=== PATIENT | female | born 1960 | race Caucasian/White ===

== ENCOUNTER 2016-11-29 10:08 | Inpatient (IN) | payer OTHER ==
[~2016-11-29] VITALS: Ht 152.4 cm; Wt 47.6 kg
[~2016-11-29 10:08] MED LIST: ATROVENT HFA 121 PUF INH; BACTRIM DS TAB1 EACH PO; INDOCIN25 MG PO; KEFLEX500 M1 PO; LYRICA150 M1 PO; LYRICA25 MG PO; MEDROL DOSEPAK1 PAC PO; NEURONTIN300 MG PO; PROAIR HFA8.5 GM INH; SUBOXONE 8 MG-21 FIL SL; TRAZODONE HCL50 M1 PO; VITAB121000 PO
[2016-11-29] MEDS ORDERED: ESCITALOPRAM OX10 MG PO (10:47)
--- NOTE | 2016-11-29 10:51 | ED HAND/WRIST INJURY COMPLAINT ---
See Addendum History of Present Illness General Chief Complaint: Hand or Wrist Injury Stated Complaint: "MY PINKY IS TURNING BLACK" LEFT Source: patient, old records Exam Limitations: no limitations Allergies Coded Allergies: Penicillins (RASH 11/29/16) Reconcile Medications Albuterol Sulfate (Proair Hfa) 90 MCG HFA.AER.AD 2 PUF INH Q4-6 PRN PRN SHORTNESS OF BREATH (Reported) Escitalopram Oxalate 10 MG TABLET 1 TAB PO DAILY DEPRESSION (Reported) Pregabalin (Lyrica) 150 MG CAPSULE 1 CAP PO BID PAIN (Reported) Trazodone HCl 50 MG TABLET 1 TAB PO QPM SLEEP (Reported) Triage Note: PT TO ED S/P FALL ON WEDNESDAY AND FELL LAST NIGHT ON ICE, C/O OF PAIN/SWELLING BRUISING TO RIGHT RIGHT PINKY. Triage Nurses Notes Reviewed? yes Occurred: last week Duration: day(s): (3), constant, getting worse Timing: recent history Injury Environment: home Severity: moderate, severe Severity Numbers: 10 Pain/Injury Location: Right: 5th finger. Context: fall Method of Injury: fall Modifying Factors: Improves With: rest. Worsens With: movement. Associated Symptoms: swelling, redness HPI: 56 year old female with history of bipolar presents emergency room for evaluation complaining of bruising and pain to her right fifth finger status post fall 3 days ago and then again last night. The patient states that she fell on her elbow and did not injure her pinky hours since then she's had progressively worsening pain and swelling to her right fifth finger. The pain is worse with range of motion. She is not taken anything for her symptoms there is no other injury from the fall no head strike no LOC no neck or back pain chest pain shortness of breath fevers or chills. Patient states that today she began to notice redness streaking up her arm. She denies any known other injury or trauma, however states that she fell asleep during the day for approximately 2 hours in her car. (MARTY GOODMAN) Vital Signs & Intake/Output Vital Signs & Intake/Output Vital Signs Date Time Temp Pulse Resp B/P Pulse O2 O2 Flow FiO2 Ox Delivery Rate 11/29 1429 98.0 90 18 102/66 94 Room Air 11/29 1244 99.2 80 20 118/60 98 Room Air 11/29 1144 99.0 84 108/74 11/29 1013 97.0 92 20 123/82 98 Room Air Room Air Past History Travel History Traveled to [place] past 21 day No Medical History Any Pertinent Medical History? none Neurological: NONE EENT: NONE Cardiovascular: NONE Respiratory: NONE Gastrointestinal: NONE Hepatic: NONE Renal: NONE Musculoskeletal: gout Psychiatric: bipolar disease Endocrine: NONE Blood Disorders: NONE Cancer(s): NONE POT PUSHER/Reproductive: NONE Tetanus Vaccine: 04/13/16 Surgical History Surgical History: non-contributory Psychosocial History What is your primary language Kyrgyz Tobacco Use: Current Daily Use Daily Tobacco Use Amount/Type: => 5 Cigarettes daily ETOH Use: denies use, SOBER X 3 YEARS Illicit Drug Use: denies illicit drug use Family History Hx Contributory? No (MARTY GOODMAN) Review of Systems Review of Systems Constitutional: Reports: see HPI. All Other Systems: Reviewed and Negative Comments Review of systems: See HPI, All other systems negative. Constitutional, no chills no fever, no malaise HEENT: No visual changes no sore throat no congestion, Cardiovascular: No chest pain , no palpitation Skin,no rashes, no change in skin Respiratory: No dyspnea no cough no sputum GI: No nausea no vomiting, no diarrhea : No dysuria No hematuria, Muscle skeletal: joint pain, no joint swelling, Neurologic: No numbness, no headache Psych: No stress Heme/endocrine: No bruising no bleeding Immunology: No lymphadenopathy (MARTY GOODMAN) Physical Exam Physical Exam General Appearance: well developed/nourished, alert, awake Hand Left: normal inspection, normal range of motion Hand Right: normal inspection, normal range of motion Comments: Well-developed well-nourished patient in no apparent distress. HEENT: Atraumatic, extraocular motion intact Neck: Supple, FROM, Back: FROM, Cardiovascular: Regular rate and rhythms no murmurs rubs or gallops, Respiratory:No respiratory distress. Patient speaking in full complete sentences. Breath sounds clear to auscultation bilaterally: NO W/R/R Shoulder: Atraumatic/Stable. FROM . Elbow: Atraumatic/stable. FROM. No laxity Upper arm/Forearm: Atraumatic. Nontender. No edema, 5 out of 5 hospital mortician strength noted to bilateral upper extremities Hand/Wrist: large hemorrhage bullae noted to the dorsal mid R 5th phalanx, the distal aspect of the finger and nail are unremarkable, and the bullae is not circumfriential. there is streaking erythema up the the volar and dosral aspect of the R arm, lrom of the r 5th finger secondray to pain, ttp over the bullae, Skin intact. FROM Pulses: Normal/equal radial pulses bilaterally. Brisk cap refill lower Extremities: full range of motion Neuro: Alert and oriented x3 Skin: Warm & dry;No appreciable rash on exposed skin Psych: Mood affect normal, normal memory normal judgment. (MARTY GOODMAN) Progress Differential Diagnosis: abscess, contusion, compartment syndrome, dislocation, felon, fracture, sprain Diagnostic Imaging: Viewed by Me: Radiology Read. Discussed w/RAD: Radiology Read. Radiology Impression: PATIENT: CASI DAMON PRESENT AGE: 56 PATIENT ACCOUNT NO: [id number] : 61 LOCATION: [facility] ORDERING PHYSICIAN: MARTY LEAVITT SERVICE DATE: 11/29/16 EXAM TYPE: RAD - XRY- FINGERS, RIGHT EXAMINATION: XR FINGER, RIGHT CLINICAL INFORMATION: Fall, trauma, pain COMPARISON: Right hand 04/13/2016. TECHNIQUE: Oblique and lateral views right fifth finger and AP view right hand are obtained for 3 views. FINDINGS: There is diffuse soft tissue swelling right fifth finger with more focal prominent soft tissue swelling dorsal aspect mid finger to the nail bed. There is no gas tracking in the soft tissues. No visible radiopaque soft tissue foreign body. The underlying bone appears intact. There is no visible fracture or dislocation. There is no joint narrowing or erosive changes or periostitis. Remainder of the bony structures are unremarkable. IMPRESSION: 1. Prominent soft tissue swelling right fifth finger, greatest dorsal aspect mid finger to the nail bed. 2. No fracture or dislocation or destructive process. 3. No gas tracking in soft tissues. No radiopaque soft tissue foreign body. DICTATED BY: SELAM MACK MD DATE/TIME DICTATED:11/29/161041 APPLE PICKER:RELL DATE/TIME TRANSCRIBED:11/29/161041 CONFIDENTIAL, DO NOT COPY WITHOUT APPROPRIATE AUTHORIZATION. <Electronically signed in Other Vendor System> SIGNED BY: SELAM MACK MD 11/29/16 1050 (MARTY GOODMAN) Plan of Care: Orders Procedure Date/time Status CBC WITHOUT DIFFERENTIAL 11/30 0600 Active BASIC ELECTROLYTES PLUS BUN&CR 11/30 0600 Active Regular Diet 11/29 D Active Admit to inpatient 11/29 1405 Active Pathway - chart 11/29 1403 Active House Staff 11/29 1403 Active Patient Data 11/29 1403 Active CULTURE,URINE 11/29 1403 Active Code Status 11/29 1403 Active Patient Data 11/29 1340 Active URINE DRUG SCREEN FOR ER ONLY 11/29 1159 Complete Saline Lock 11/29 1102 Active BLOOD CULTURE 11/29 1102 Active ETHANOL 11/29 1102 Complete COMPREHENSIVE METABOLIC PANEL 11/29 1102 Complete CREATINE PHOSPHOKINASE 11/29 1102 Complete CBC WITHOUT DIFFERENTIAL 11/29 1102 Complete Intake & Output 11/29 1047 Active VTE Mechanical Prophylaxis 11/29 UNK Active Current Medications Sig/Amandeep Start time Last Medication Dose Stop Time Status Admin Enoxaparin Sodium 40 MG DAILY 11/30 1000 AC (Lovenox) Acetaminophen 650 MG Q6 PRN 11/29 1415 AC (Tylenol) Ibuprofen 600 MG Q6 PRN 11/29 1415 AC (Motrin) Ketorolac 15 MG Q6P PRN 11/29 1415 AC Tromethamine (Toradol) Laboratory Tests 11/29/16 1228: Urine Opiates Screen < 100.00, Methadone Screen 43, Barbiturate Screen 63, Ur Phencyclidine Scrn < 6.00, Amphetamines Screen < 100, U Benzodiazepines Scrn < 85, Urine Cocaine Screen > 1000 H, Urine Cannabis Screen < 5.00 11/29/16 1110: Anion Gap 10, Estimated GFR > 60, BUN/Creatinine Ratio 18.3, Glucose 113 H, Calcium 9.6, Total Bilirubin 0.6, AST 22, ALT 28, Alkaline Phosphatase 107, Creatine Kinase 142 H, Total Protein 7.7, Albumin 4.6, Globulin 3.1, Albumin/ Globulin Ratio 1.5, CBC w Diff NO MAN DIFF REQ, RBC 4.63, MCV 92.8, MCH 30.8, RDW 13.9, MPV 9.2, Gran % 79.4 H, Lymphocytes % 11.1 L, Monocytes % 7.4, Eosinophils % 1.1, Basophils % 1.0, Absolute Granulocytes 10.0 H, Absolute Lymphocytes 1.4, Absolute Monocytes 0.9 H, Absolute Eosinophils 0.1, Absolute Basophils 0.1, PUBS MCHC 33.2, Serum Alcohol < 10.0 Microbiology 11/29 1403 URINE ROUT: Urine Culture - ORD 11/29 111 BLOOD: Blood Culture - RECD 11/29 111 BLOOD: Blood Culture - RECD Labs ordered old records reviewed x-ray was reviewed and discussed with patient her results, Unasyn 1.5 mg IV ordered d/w the pt and her mother all of her results and xray findings- need for admission and plastics consult which they are in agreement with Case discussed with dr donaldson will admit, advised to given doxy 100mg iv, tetantus, (MARTY GOODMAN) Departure Departure Time of Disposition: 1334 Disposition: STILL A PATIENT Condition: Stable Clinical Impression Primary Impression: Cellulitis Secondary Impressions: Lymphangitis, Traumatic bulla Referrals: MATTHEW ARCINIEGA MD (PCP/Family) Departure Forms: Customer Survey General Discharge Information Admission Note Spoke With: ISABELA DONALDSON MD Documentation of Exam: Documentation of any treatments & extenuating circumstances including Concerns Regarding Discharge (functional status, medication knowledge or non-compliance, living conditions, etc.) that warrant an admission rather than observation: IV antibiotics, plastics consult premature discharge would BE medically harmful trend labs (MARTY GOODMAN) PA/HOUSEHOLD REFRIGERATION MECHANIC Co-Sign Statement Statement: ED Attending supervision documentation- [x] I saw and evaluated the patient. I have also reviewed all the pertinent lab results and diagnostic results. I agree with the findings and the plan of care as documented in the PA's/HOUSEHOLD REFRIGERATION MECHANIC's documentation. [] I have reviewed the ED Record and agree with the PA's/HOUSEHOLD REFRIGERATION MECHANIC's documentation. [] Additions or exceptions (if any) to the PAs/HOUSEHOLD REFRIGERATION MECHANIC's note and plan are summarized below: [] (MELONIE DUBOSE,JULIET Martin)
[2016-11-29 11:35] LABS: ABSOLUTE BASOPHIL COUNT 0.1 /CUMM (0.0-0.2); ABSOLUTE EOSINOPHIL COUNT 0.1 /CUMM (0.0-0.7); ABSOLUTE LYMPH COUNT 1.4 /CUMM (1.2-3.4); ABSOLUTE MONOCYTE COUNT 0.9 /CUMM (0.10-0.60); EOSINOPHIL % 1.1 % (0-5); GRANULOCYTE % 79.4 % (42.2-75.2); MEAN CORPUSCULAR HGB 30.8 PG (27.0-31.0); MEAN CORPUSCULAR HGB CONC 33.2 G/DL (33.0-37.0); MEAN CORPUSCULAR VOLUME 92.8 FL (81.0-99.0); MEAN PLATELET VOLUME 9.2 FL (7.4-10.4); PLATELET COUNT 241 /CUMM (130-400); RBC DISTRIBUTION WIDTH 13.9 % (11.5-14.5); RED BLOOD CELL CT 4.63 /CUMM (4.20-5.40); WHITE BLOOD CELL COUNT 12.6 /CUMM (4.8-10.8)
--- NOTE | 2016-11-29 15:06 | History & Physical ---
SHI DUBOSE,[facility] 11/29/16 1505: General Information and HPI MD Statement: I have seen and personally examined CASI DAMON and documented this H&P. The patient is a 56 year old F who presented with a patient stated chief complaint of swollen finger. Source of Information: patient, family Exam Limitations: poor historian, intoxication History of Present Illness: This is a 56-year-old with a past medical history of bipolar disease, polysubstance abuse, and no other known medical history presents to [place] ED with a chief complaint of a swollen fifth finger of her right jarvis. Patient was significantly drowsy and was a very poor historian and struggle to maintain a conversation. We attempted to contact, for more information without any success. Patient reports that in the past few days she has noticed that her finger was swollen and now has progressively worsened with pain and discoloration. Patient friend who was presented later notes that the patient had 2 episodes of mechanical fall on ice without hitting her head. Patient claims that her fifth digitt of her right wrist is swollen because of frostbite. She does deny any trauma or insect bite. She denies any fevers, chills, nausea, vomiting, chest pain, palpitation, shortness of breath, abdominal pain or dysuria. Patient reports that she lives at home with her mother. Allergies/Medications Allergies: Coded Allergies: Penicillins (RASH 11/29/16) Home Med list Albuterol Sulfate (Proair Hfa) 90 MCG HFA.AER.AD 2 PUF INH Q4-6 PRN PRN SHORTNESS OF BREATH (Reported) Escitalopram Oxalate 10 MG TABLET 1 TAB PO DAILY DEPRESSION (Reported) Pregabalin (Lyrica) 150 MG CAPSULE 1 CAP PO BID PAIN (Reported) Trazodone HCl 50 MG TABLET 1 TAB PO QPM SLEEP (Reported) Past History Travel History Traveled to [place] past 21 day No Medical History Neurological: NONE EENT: NONE Cardiovascular: NONE Respiratory: NONE Gastrointestinal: NONE Hepatic: NONE Renal: NONE Musculoskeletal: gout Psychiatric: bipolar disease Endocrine: NONE Blood Disorders: NONE Cancer(s): NONE AVIONICS TEST TECHNICIAN/Reproductive: NONE Tetanus Vaccine: 11/29/16 Surgical History Surgical History: non-contributory Past Family/Social History Psychosocial History ETOH Use: denies use, SOBER X 3 YEARS Illicit Drug Use: denies illicit drug use Review of Systems Review of Systems Constitutional: Denies: see HPI (most of the review of systems ). All Other Systems: Reviewed and Negative Exam & Diagnostic Data Physical Exam General Appearance Alert, oriented to place and person, appears moderately sedated Skin significant discoloration of the fifth digit of right hand with purple hue and some mild necrotic areas, streaking erythema up to the volar and dorsal Mary HEENT Atraumatic, PERRLA, EOMI, Mucous Membr. moist/pink Neck Supple, No JVD, No thryomegaly Lymphatic Cervical nl Cardiovascular Regular Rate, Normal S1, Normal S2 Lungs Clear to Auscultation, Normal Air Movement Abdomen Normal Bowel Sounds, Soft, No Tenderness Neurological Normal Speech, not able to conduct a full neurological exam due to moderate sedation of patient Extremities No Clubbing, No Cyanosis, No Edema, Normal Pulses, brisk capillary refill Vascular Normal Pulses, Pulses Symmetrical Assessment/Plan Assessment: This is a 56-year-old lady with a past medical history of bipolar disease and probable polysubstance abuse presents to [place] ED for evaluation of a swollen discolored fifth digit finger of her right hand. She is also noted to have mild leukocytosis. At the ED and incision and debridement was done of the right finger which produced hemorrhagic drainage and some mild necrotic tissue. Patient was also noted to have a positive urine tox for cocaine. Patient was admitted to general medicine floor for evaluation and treatment of her infected finger. Assessment and plan #Swollen fifth digit of the right hand Affected fifth digit had a hemorrhagic blister appearance, discoloration, and was suggestion of necrosis. Considering that the patient is sedated and sleepy with a positive urine tox it is most likely that her swollen finger was caused by trauma secondary to laying on hand while asleep. During debridement, there were some necrotic appearing tissue, this could suggest that patient finger was infected after the trauma. Plan Will start patient on prophylaxis treatment of clindamycin 600 mg IV q8h NSAIDs for symptomatic relief Resting splint and elevation for the affected digit Will continue with dressing recommendation of a sulfadiazine and Xeroform to be done twice daily #Cocaine abuse Patient urine tox is remarkable for cocaine. Plan We'll monitor for withdrawal Will consider social/psychosocial consult. #Psychiatric history Will continue escitalopram, but hold the trazodone and Lyrica in the setting of moderate sedation. Will need to obtain patient's detailed past medical history from his primary care As Ranked By This Provider Problem List: 1. Traumatic bulla Core Measures/Miscellaneous Acute Coronary Syndrome ACS Diagnosis: No Cerebrovascular Accident CVA/TIA Diagnosis: No Congestive Heart Failure CHF Diagnosis: No Venous Thromboembolism VTE Risk Factors: Acute medical illness, Age > 40 VTE Prophylaxis Ordered Inpt: Pharm- Lovenox No Mech VTE prophylaxis d/t: No contraindications No VTE Pharm Prophylaxis d/t: No contraindications VTE Diagnosis: No VTE Type: NONE VTE Confirmed by (Test): NONE Severe Sepsis Severe Sepsis Present: No Septic Shock Septic Shock Present: No Miscellaneous Documentation Attending Case Discussed With: MENDOZA DUBOSE,ISABELA Primary Care Physician: MATTHEW ARCINIEGA MD Patient sees these Specialists none Level of Patient Care: General Medicine JAZMIN FORTUNE 11/29/16 1624: Exam & Diagnostic Data Last 24 Hrs of Vital Signs/I&O Vital Signs Date Time Temp Pulse Resp B/P Pulse O2 O2 Flow FiO2 Ox Delivery Rate 11/30 0856 98.6 70 20 110/60 94 Nasal 2.0L Cannula 11/30 0141 72 110/70 11/30 0027 98.4 69 20 102/54 95 11/30 0000 Nasal 2.0L Cannula 11/29 2009 94 Nasal 2.0L Cannula 11/29 1940 98.1 79 18 80/40 98 Nasal 2.0L Cannula 11/29 1845 98.9 83 17 90/30 97 Nasal 2.0L Cannula 11/29 1815 98.6 90 18 87/48 94 Nasal 2.0L Cannula 11/29 1704 101.0 102 20 132/78 96 Room Air 11/29 1702 99.9 11/29 1628 101.8 11/29 1615 101.8 100 20 127/75 100 Room Air 11/29 1429 90 18 102/66 94 Room Air 11/29 1244 99.2 98 20 118/60 98 Room Air 11/29 1144 99.0 84 108/74 11/29 1013 97.0 92 20 123/82 98 Room Air Room Air Intake & Output 11/30 1600 11/30 0800 11/30 0000 Intake Total 970 1000 Output Total 800 Balance 170 1000 Intake, IV 850 1000 Intake, Oral 120 Output, Urine 800 Patient 105 lb Weight Resident Review Statement Resident Statement: examined this patient, discussed with sports internship, agreed with sports internship Other Findings: Patient is a 56-year-old woman with a past medical history significant for bipolar disease presented to the ED with a chief complaint of swelling of the right fifth finger status post fall . Patient was very drowsy and lethargic at the time of examination so most of the history was obtained from the ED physician . As per ED physician patient fell on ice on Wednesday and then again last night, she could not recall whether she injured her right fifth finger. Patient denied any trauma to hand/bug bite. She did mention that she was in the car without any heat for almost 2 hours during the day. Patient reported that the swelling gotten worsein the last 24 hours with progressive discoloration. Reported pain on passive finger movements. Denied any fever or chills. Vitals on admission: Temperature: 97.0, pulse 90, respiratory rate 20, blood pressure 123/82 on room air General Appearance: Appeared drowsy but oriented in time place and person Skin: Grossly normal HEENT: PEERLA Neck: Supple, No JVD Cardiovascular: Regular Rate, Normal S1, Normal S2, No Murmurs Lungs: Decreased respirations with wheeze on exam Abdomen: Normal Bowel Sounds, Soft, No Tenderness Neurological: Normal Speech, Strength at 5/5 X4 Ext, Cranial Nerves 3-12 NL, Reflexes 2+ Extremities: large hemorrhage bullae noted to the dorsal mid R 5th phalanx, the distal aspect of the finger and nail are unremarkable, and the bullae is not circumfriential. there is streaking erythema up the the volar and dosral aspect of the R arm, lrom of the r 5th finger secondray to pain, ttp over the bullae, Skin intact. Vascular: Normal Pulses Pertinent labs on admission: Leukocytosis 12.6 without any bandemia, normal BEP Urine tox was positive for cocaine X-ray of the right fifth finger showed: Prominent soft tissue swelling right fifth finger, greatest dorsal aspect mid finger to the nail bed. No fracture or dislocation or destructive process. No evidence of gas in the soft tissues. Assessment and plan: 1. Worsening right fifth finger swelling with discoloration(possible underlying Pressure induced injury leading to skin necrosis and cellulitis/lymphangitis : * Plastic surgery consult has been obtained for possible debridement of the wound, we will reevaluate the patient and send the samples from the wound for culture. * Empirically treat the patient with IV clindamycin for now for possible underlying infection. * Moderate to severe pain control with ibuprofen and Toradol. * Mild pain controlled with warm/cold therapy * Continue with hand elevation. * Post debridement continuw with xeroform dressing and Silvedene. * [facility] 2. History of bipolar disease and anxiety and depression * Continue home medications ,hold for worsening drowsiness/lethargy. 3. Positive drug screening(urine tox positive for cocaine): * Continue to monitor. * Consider social consult in the morning. 4. DVT prophylaxis with Lovenox(start tomorrow)-anticipated debridement of the wound today. 5. Pain control with IV Toradol and ibuprofen 6. Patient is full code ISABELA DONALDSON MD 11/29/16 1749: Attending MD Review Statement Attending Statement Attending MD Statement: examined this patient, discuss w/resident/PA/VAMP MARKER, agreed w/resident/PA/VAMP MARKER, reviewed EMR data (avail) Attending Assessment/Plan: 56F PMH bipolar disorder, polysubstance abuse admitted with right 5th finger hemorrhagic bullous with significant pain and surrounding erythema. Had 2 falls over the past few days without head injury, slept in her car overnight, denies getting bit by anything or anyone, cannot recall any trauma to the finger. Afebrile, stable vitals, labs reviewed. Over the course of a few hours, lesion began darker and started to spread proximally. Plan - Admit to general medicine - Start Clindamycin (penicillin allergic, though receied Unasyn in ED without issues) - Blood cultures - Plastic surgery consult - Xeroform and Silvedene, keep elevated, OT consult - Monitor post-debridement - DVT PPx
--- NOTE | 2016-11-29 17:32 | Cons- Plastic Surgery ---
General Information and HPI Consulting Request Date of Consult: 11/29/16 Requested By: ISABELA DONALDSON MD Reason for Consult: right small finger injury History of Present Illness: 56-year-old right-handed female, smoker nondiabetic unemployed bipolar poor historian accompanied by mother and friend with cocaine in system per report, with swelling of right small finger since , progressively worsening with dark blister and pain so came to ER today. Fell asleep in car. Unclear details. Friend thought it was marshall bite but no ther fingers involved. Note to have streaking up arm. Xray negative for fx per ER staff. WBC elevated Allergies/Medications Allergies: Coded Allergies: Penicillins (RASH 11/29/16) Home Med List: Albuterol Sulfate (Proair Hfa) 90 MCG HFA.AER.AD 2 PUF INH Q4-6 PRN PRN SHORTNESS OF BREATH (Reported) Escitalopram Oxalate 10 MG TABLET 1 TAB PO DAILY DEPRESSION (Reported) Pregabalin (Lyrica) 150 MG CAPSULE 1 CAP PO BID PAIN (Reported) Trazodone HCl 50 MG TABLET 1 TAB PO QPM SLEEP (Reported) Current Medications: Current Medications Sig/Amandeep Start time Last Medication Dose Route Stop Time Status Admin Acetaminophen 650 MG ONCE ONE 11/29 1630 DC 11/29 PO 11/29 1631 1628 Acetaminophen 0 .STK-MED ONE 11/29 1621 DC PO Acetaminophen 650 MG Q6 PRN 11/29 1415 AC PO Ampicillin Sodium/ 0 .STK-MED ONE 11/29 1126 DC Sulbactam Sodium .ROUTE Ampicillin Sodium/ 1,500 MG ONCE ONE 11/29 1115 DC 11/29 Sulbactam Sodium IV 11/29 1144 1129 Sodium Chloride 100 ML Clindamycin 600 MG IQ8 11/29 1600 AC 11/29 Dextrose/Water 50 ML IV 1700 Doxycycline Hyclate 100 MG ONCE ONE 11/29 1330 DC 11/29 Sodium Chloride 100 ML IV 11/29 1435 1348 Enoxaparin Sodium 40 MG DAILY 11/30 1000 CAN SC Enoxaparin Sodium 40 MG DAILY 11/30 1000 AC SC Escitalopram Oxalate 10 MG DAILY 11/30 1000 CAN PO Ibuprofen 600 MG Q6 PRN 11/29 1415 AC PO Ketorolac 15 MG Q6P PRN 11/29 1415 AC Tromethamine IV Ketorolac 30 MG ONCE ONE 11/29 1130 DC 11/29 Tromethamine IV 11/29 1131 1129 Ketorolac 0 .STK-MED ONE 11/29 1126 DC Tromethamine .ROUTE Lidocaine 0 .STK-MED ONE 11/29 1616 DC .ROUTE Morphine Sulfate 0 .STK-MED ONE 11/29 1620 DC .ROUTE Morphine Sulfate 4 MG ONCE ONE 11/29 1615 DC 11/29 IV 11/29 1616 1628 Silver Sulfadiazine 1 CHRISTIAN ONCE ONE 11/29 1615 DC 11/29 TOP 11/29 1616 1654 Tetanus/Diphtheria 0 .STK-MED ONE 11/29 1339 DC Toxoids Adsorbed IM Tetanus/Diphtheria 0.5 ML ONCE ONE 11/29 1330 DC 11/29 Toxoids Adsorbed IM 11/29 1331 1340 Trazodone HCl 50 MG QPM 11/29 2200 CAN PO Past History Medical History Neurological: NONE EENT: NONE Cardiovascular: NONE Respiratory: NONE Gastrointestinal: NONE Hepatic: NONE Renal: NONE Musculoskeletal: gout Psychiatric: bipolar disease Endocrine: NONE Blood Disorders: NONE Cancer(s): NONE BUYER/Reproductive: NONE Surgical History Pertinent Surgical History: non-contributory Psychosocial History Smoking Status: Heavy Tobacco Smoker ETOH Use: denies use, SOBER X 3 YEARS Illicit Drug Use: denies illicit drug use (? report cocaine) Exam & Diagnostic Data Vital Signs and I&O Vital Signs Date Time Temp Pulse Resp B/P Pulse O2 O2 Flow FiO2 Ox Delivery Rate 11/29 1704 101.0 102 20 132/78 96 Room Air 11/29 1702 99.9 11/29 1628 101.8 11/29 1615 101.8 100 20 127/75 100 Room Air 11/29 1429 90 18 102/66 94 Room Air 11/29 1244 99.2 98 20 118/60 98 Room Air 11/29 1144 99.0 84 108/74 11/29 1013 97.0 92 20 123/82 98 Room Air Room Air Intake & Output 11/29 1600 11/29 0800 11/29 0000 11/28 1600 11/28 0800 11/28 0000 Intake Total Output Total Balance Patient 105 lb Weight Right smal finger with dark hemorrhagic blister on dorsal surface from proximal phalanx to nail fold. Nail and nail bed uninvolved. Volar surface uninvolved. Very painful. Suggestion of red streaks up dorsal forearm. Other fingers uninvolved. ? clubbing of some digits. Procedure: I and D right small finger. 1% plain lidocaine digital block 5cc. Betadine prep. Sterile drape. Entire dorsal blister sharply debrided with scalpel and scissors. Culture obtained. Turbid hemorrhagic fluid evacuated. Hemorrhagic tissue noted deep. Cleaned with saline. Dressed with SSD and xeroform. Assessment/Plan Assessment/Plan Poor history but presents with hemorrhagic blister of dorsal right small finger, probably from prolonged pressure when she fell asleep. Pt was lethargic still today. Doubt marshall bite because no other fingers involved, and injury was not circumferential. Probabaly pressure induced followed by tissue necrosis that began to get infected. Blister debrided today. Cannot yet be sure of the depth of tissue injury. Have to follow and observe. If full thickness, would need surgical reconstruction. More time needed. In interim, keep elevated; antibiotics; NSAIDS; culture pending; change dressing BID with silversulfadiazene (SSD) and xerofrom and gurmeet wrap; have OT see patient for daily whirlpool, resting splint for wrist and small finger, ROM for wrist and other digits and small finger as tolerated. Can FU in my office upon DC. Consult Acknowledgment - Thank you for your consult request.
--- NOTE | 2016-11-29 17:54 | Admission Certification ---
Admission Certification Certification Statement - As attending physician, I certify that at the time of - admission, based on clinical presentation, severity of - symptoms, need for further diagnostic testing and - therapeutic interventions, and risk of adverse outcomes - without in-hospital treatment, in my clinical assessment, - this patient requires an acute hospital stay for a minimum - of two nights or longer. I have also considered psychsocial - factors such as support system, advanced age, financial - issues, cognitive issues, and failed out-patient treatments, - past re-admission history, safety of patient, and lack of - compliance as applicable. Specific rationale supporting this admission is: Necrotic lesions of right 5th finger requiring debridement and IV antibiotics
[2016-11-29 18:15] VITALS: BP 87/48
[2016-11-29 18:45] VITALS: BP 90/0; BP 90/30
[2016-11-29 19:40] VITALS: BP 80/40
[2016-11-30 00:27] VITALS: BP 102/54
[2016-11-30 01:41] VITALS: BP 110/70
[2016-11-30 08:24] LABS: ABSOLUTE BASOPHIL COUNT 0 /CUMM (0.0-0.2); ABSOLUTE EOSINOPHIL COUNT 0.2 /CUMM (0.0-0.7); ABSOLUTE MONOCYTE COUNT 0.6 /CUMM (0.10-0.60); EOSINOPHIL % 3.4 % (0-5); MEAN CORPUSCULAR HGB CONC 33.4 G/DL (33.0-37.0); RED BLOOD CELL CT 4.04 /CUMM (4.20-5.40)
[2016-11-30 08:54] LABS: ABSOLUTE GRANULOCYTE CT 4.5 /CUMM (1.4-6.5); BASOPHIL % 0.5 % (0.0-2.0); GRANULOCYTE % 70.7 % (42.2-75.2); MEAN CORPUSCULAR HGB 31.4 PG (27.0-31.0); MEAN CORPUSCULAR VOLUME 94.1 FL (81.0-99.0); MEAN PLATELET VOLUME 9.3 FL (7.4-10.4); PLATELET COUNT 193 /CUMM (130-400); RBC DISTRIBUTION WIDTH 14.2 % (11.5-14.5); WHITE BLOOD CELL COUNT 6.4 /CUMM (4.8-10.8)
[2016-11-30 08:56] VITALS: BP 110/60
--- NOTE | 2016-11-30 10:45 | PN- Housestaff ---
Subjective Follow-up For: Sepsis Cocaine abuse Subjective: Patient is seen and examined at bedside. Patient is significantly awake and alert compared to yesterday. She does appear tearful when she is informed that she has to spend an extra day. Not endorse any acute complaint of fever, chills , nausea, vomiting, abdominal pain, dysuria, chest pain or palpitation. Review of Systems Constitutional: Reports: no symptoms. Objective Last 24 Hrs of Vital Signs/I&O Date Time Temp Pulse Resp B/P Pulse O2 O2 Flow FiO2 Ox Delivery Rate 11/30 1631 97.5 70 20 108/60 95 Nasal Cannula 11/30 0856 98.6 70 20 110/60 94 Nasal 2.0L Cannula 11/30 0141 72 110/70 11/30 0027 98.4 69 20 102/54 95 11/30 0000 Nasal 2.0L Cannula 11/29 2009 94 Nasal 2.0L Cannula 11/29 1940 98.1 79 18 80/40 98 Nasal 2.0L Cannula 11/29 1845 98.9 83 17 90/30 97 Nasal 2.0L Cannula 11/29 1815 98.6 90 18 87/48 94 Nasal 2.0L Cannula Physical Exam General Appearance: Alert, Oriented X3, Cooperative Skin: dressing and splint intact on the fifth digit of right HEENT: Atraumatic, PERRLA, EOMI, Mucous Membr. moist/pink Neck: Supple, No JVD Lungs: Clear to Auscultation, Normal Air Movement Abdomen: Normal Bowel Sounds, Soft, No Tenderness Extremities: No Clubbing, No Cyanosis, fifth digit of right hand has intact dressing and splint Assessment/Plan Assessment: This is a 56-year-old lady with a past medical history of bipolar disease and probable polysubstance abuse presents to [facility] for evaluation of a swollen discolored fifth digit finger of her right hand. She is also noted to have mild leukocytosis. At the ED and incision and debridement was done of the right finger which produced hemorrhagic drainage and some mild necrotic tissue. Patient was also noted to have a positive urine tox for cocaine. Patient was admitted to general medicine floor for evaluation and treatment of her infected finger. Assessment and plan #Sepsis Patient met sepsis criteria during the day of admission (developed tachycardia, hypotension, fever,leukocytosis, with her finger being the source of infection). Plan Patient received adequate boluses of normal saline to keep BP at goal Patient received maintenance 100 mils per hour Lactic acid was obtained which was unremarkable #Swollen fifth digit of the right hand Affected fifth digit had a hemorrhagic blister appearance, discoloration, and was suggestion of necrosis. Considering that the patient is sedated and sleepy with a positive urine tox it is most likely that her swollen finger was caused by trauma secondary to laying on hand while asleep. During debridement, there were some necrotic appearing tissue, this could suggest that patient finger was infected after the trauma. Plan clindamycin 600 mg IV q8h NSAIDs for symptomatic relief Resting splint and elevation for the affected digit Will continue with dressing recommendation of a sulfadiazine and Xeroform to be done twice daily #Cocaine abuse Patient urine tox is remarkable for cocaine. Plan We'll monitor for withdrawal Will consider social/psychosocial consult. #Psychiatric history Will continue escitalopram, but hold the trazodone and Lyrica in the setting of moderate sedation. Problem List: 1. Sepsis Pain Ratin Pain Location: right hand Pain Goal: Remain pain free Pain Plan: nsaids... holding off narcotic as patient was sedated from cocaine use Tomorrow's Labs & Rationales: CBC
[2016-11-30 16:31] VITALS: BP 108/60
--- NOTE | 2016-11-30 17:51 | PN- Att Addend ---
Attending MD Review Statement Attending Statement Attending MD Statement: examined this patient, discuss w/resident/PA/MOLDER MACHINE TENDER, agreed w/resident/PA/MOLDER MACHINE TENDER, reviewed EMR data (avail), discussed w/nursing, discussed w/ case mgmt Attending Assessment/Plan: Laboratory Tests 11/30/16 0725: Anion Gap 8, Estimated GFR > 60, BUN/Creatinine Ratio 21.4, CBC w Diff NO MAN DIFF REQ, RBC 4.04 L, MCV 94.1, MCH 31.4 H, RDW 14.2, MPV 9.3, Gran % 70.7, Lymphocytes % 15.6 L, Monocytes % 9.8 H, Eosinophils % 3.4, Basophils % 0.5, Absolute Granulocytes 4.5, Absolute Lymphocytes 1.0 L, Absolute Monocytes 0.6, Absolute Eosinophils 0.2, Absolute Basophils 0, PUBS MCHC 33.4 Vital Signs Date Time Temp Pulse Resp B/P Pulse O2 O2 Flow FiO2 Ox Delivery Rate 11/30 1631 97.5 70 20 108/60 95 Nasal Cannula 11/30 0856 98.6 70 20 110/60 94 Nasal 2.0L Cannula 11/30 0141 72 110/70 11/30 0027 98.4 69 20 102/54 95 11/30 0000 Nasal 2.0L Cannula 11/29 2009 94 Nasal 2.0L Cannula 11/29 1940 98.1 79 18 80/40 98 Nasal 2.0L Cannula 11/29 1845 98.9 83 17 90/30 97 Nasal 2.0L Cannula 11/29 1815 98.6 90 18 87/48 94 Nasal 2.0L Cannula Cellulitis and abscess 5th finger- drained. On iv clindamycin, added probiotics Sepsis with hypotension- resolved with iv fluids. Cocaine use- pt will be seen by SW to d/w her rehab options. pt will benefit from outpatient psychiatry follow up. Culture growing staph aureus.
[2016-12-01 01:23] VITALS: BP 101/59
--- NOTE | 2016-12-01 06:56 | Patient Discharge Instructions ---
Discharge Instructions General Discharge Information You were seen/treated for: Cellulitis of the hand. Sepsis with low blood pressure Watch for these problems: Worsening pain or swelling of the hand. Fevers, chills or body aches. Generalized weakness, nausea or vomiting Special Instructions: Please take your prescribed antibiotic as durected untill all finished. Follow-up with your PCP within one week after discharge. Please avoid taking any nonprescribed medications or substances that can affect your health adversely. Diet Continue normal diet: Yes Activity Full Activity/No Limits: Yes Acute Coronary Syndrome Inclusion Criteria At DC or during hospital stay patient has or had the following: ACS DIAGNOSIS No Discharge Core Measures Meds if any: Prescribed or Continued at Discharge Meds if any: NOT Prescribed or Continued at Discharge Congestive Heart Failure Inclusion Criteria At DC or during hospital stay patient has or had the following: CHF DIAGNOSIS No Discharge Core Measures Meds if any: Prescribed or Continued at Discharge Meds if any: NOT Prescribed or Continued at Discharge Cerebrovascular accident Inclusion Criteria At DC or during hospital stay patient has or had the following: CVA/TIA Diagnosis No Discharge Core Measures Meds if any: Prescribed or Continued at Discharge Meds if any: NOT Prescribed or Continued at Discharge Venous thromboembolism Inclusion Criteria VTE Diagnosis No VTE Type NONE VTE Confirmed by (Test) NONE Discharge Core Measures - Per Current guidelines, there needs to be overlap - treatment for the first 5 days of Warfarin therapy. - If discharged on Warfarin prior to 5 days of - overlap therapy, the patient will need to be - assessed for post discharge needs including - *Post discharge parental anticoagulation - *Warfarin and/or parental anticoagulation education - *Follow up date to check INR post discharge At least 5 days overlap therapy as Inpatient No Meds if any: Prescribed or Continued at Discharge Note: Overlap Therapy is Warfarin and Anticoagulant Meds if any: NOT Prescribed or Continued at Discharge
[2016-12-01] MEDS ORDERED: BACTRIM DS TAB1 EACH PO (07:41)
[2016-12-01 07:46] LABS: ABSOLUTE BASOPHIL COUNT 0 /CUMM (0.0-0.2); ABSOLUTE EOSINOPHIL COUNT 0.2 /CUMM (0.0-0.7); ABSOLUTE LYMPH COUNT 1.5 /CUMM (1.2-3.4); ABSOLUTE MONOCYTE COUNT 0.6 /CUMM (0.10-0.60); BASOPHIL % 0.6 % (0.0-2.0); EOSINOPHIL % 3.3 % (0-5); GRANULOCYTE % 62.3 % (42.2-75.2); MEAN CORPUSCULAR HGB 31.3 PG (27.0-31.0); MEAN CORPUSCULAR HGB CONC 33.2 G/DL (33.0-37.0); MEAN CORPUSCULAR VOLUME 94.3 FL (81.0-99.0); MEAN PLATELET VOLUME 9.7 FL (7.4-10.4); PLATELET COUNT 201 /CUMM (130-400); RBC DISTRIBUTION WIDTH 13.8 % (11.5-14.5); RED BLOOD CELL CT 3.92 /CUMM (4.20-5.40); WHITE BLOOD CELL COUNT 6.4 /CUMM (4.8-10.8)
[2016-12-01 08:02] VITALS: BP 124/78
--- NOTE | 2016-12-01 08:51 | PN- Housestaff ---
Subjective Follow-up For: FINGER WOUND Subjective: Pt is seen and examined at bedside. She is eager for discharge. She does endorse pain in her affected fifth digit finger, however, she does state that the pain is significantly better than previous day. Denies any fever/chills, nausea/ vomiting, dizziness, chest pain or plapitation. No acute o/n event reported by nursing staff. Review of Systems Constitutional: Reports: see HPI. Objective Last 24 Hrs of Vital Signs/I&O Vital Signs Date Time Temp Pulse Resp B/P Pulse O2 O2 Flow FiO2 Ox Delivery Rate 12/01 0802 98.4 74 20 124/78 98 Room Air 12/01 0123 98.6 77 20 101/59 96 Nasal 2.0L Cannula 12/01 0000 Nasal 2.0L Cannula Intake & Output 12/01 1600 12/01 0800 12/01 0000 Intake Total 560 1160 1300 Output Total Balance 560 1160 1300 Intake, IV 800 800 Intake, Oral 560 360 500 Number 1 Bowel Movements Physical Exam General Appearance: Alert, Oriented X3, Cooperative Skin: INTACT DRESSING ON HER FIFTH DIGIT OF RIGHT HAND Cardiovascular: Regular Rate, Normal S1, Normal S2 Lungs: Clear to Auscultation, Normal Air Movement Abdomen: Normal Bowel Sounds, Soft, No Tenderness Assessment/Plan Assessment: This is a 56-year-old lady with a past medical history of bipolar disease and probable polysubstance abuse presents to [facility] for evaluation of a swollen discolored fifth digit finger of her right hand. She is also noted to have mild leukocytosis. At the ED and incision and debridement was done of the right finger which produced hemorrhagic drainage and some mild necrotic tissue. Patient was also noted to have a positive urine tox for cocaine. Patient was admitted to general medicine floor for evaluation and treatment of her infected finger. Assessment and plan #Sepsis Patient met sepsis criteria during the day of admission (developed tachycardia, hypotension, fever,leukocytosis, with her finger being the source of infection). #Swollen fifth digit of the right hand Cultures came back growing staph aureus. Regarding pain, we will refrain from using opiates as patient was positive for cocaine use and was significantly drowsy during admission. Plan * Preliminary culture from microbiology is suggestive of methicillin sensitive, however will give patient Bactrim DS 1 by mouth twice a day for 10 days, in the event final cultures show methicillin-resistant staph * Due to cocaine use and patient severe drowsiness during admission, we refrained from giving patient any opioids for pain. Since patient was endorsing decreased pain and scorin a 3, we recommended that patient use [id number] NSAIDs for pain control. * Discussed the patient importance of following up with Dr. Simpson regarding evaluation of the debrided digit. #Psychiatric history Continue home meds upon discharge Problem List: 1. Sepsis 2. Traumatic bulla 3. Cellulitis Pain Ratin Pain Location: Right hand fifth digit Pain Goal: Remain pain free Pain Plan: Acetaminophen for mild pain NSAID FOR MODERATE PAIN Tomorrow's Labs & Rationales: NONE. Patient is getting discharged today.
--- NOTE | 2016-12-01 08:52 | PN- Housestaff ---
Assessment/Plan Assessment: This is a 56-year-old lady with a past medical history of bipolar disease and probable polysubstance abuse presents to [place] ED for evaluation of a swollen discolored fifth digit finger of her right hand. She is also noted to have mild leukocytosis. At the ED and incision and debridement was done of the right finger which produced hemorrhagic drainage and some mild necrotic tissue. Patient was also noted to have a positive urine tox for cocaine. Patient was admitted to general medicine floor for evaluation and treatment of her infected finger. Assessment and plan #Sepsis Patient met sepsis criteria during the day of admission (developed tachycardia, hypotension, fever,leukocytosis, with her finger being the source of infection). Plan Patient received adequate boluses of normal saline to keep BP at goal Patient received maintenance 100 mils per hour Lactic acid was obtained which was unremarkable #Swollen fifth digit of the right hand Affected fifth digit had a hemorrhagic blister appearance, discoloration, and was suggestion of necrosis. Considering that the patient is sedated and sleepy with a positive urine tox it is most likely that her swollen finger was caused by trauma secondary to laying on hand while asleep. During debridement, there were some necrotic appearing tissue, this could suggest that patient finger was infected after the trauma. Plan clindamycin 600 mg IV q8h NSAIDs for symptomatic relief Resting splint and elevation for the affected digit Will continue with dressing recommendation of a sulfadiazine and Xeroform to be done twice daily #Cocaine abuse Patient urine tox is remarkable for cocaine. Plan We'll monitor for withdrawal Will consider social/psychosocial consult. #Psychiatric history Will continue escitalopram, but hold the trazodone and Lyrica in the setting of moderate sedation.
--- NOTE | 2016-12-01 15:46 | PN- Att Addend ---
Attending MD Review Statement Attending Statement Attending MD Statement: examined this patient, discuss w/resident/PA/JACQUARD LOOM HEDDLES TIER, agreed w/resident/PA/JACQUARD LOOM HEDDLES TIER, reviewed EMR data (avail), discussed w/nursing Attending Assessment/Plan: Laboratory Tests 12/01/16 0615: CBC w Diff NO MAN DIFF REQ, RBC 3.92 L, MCV 94.3, MCH 31.3 H, RDW 13.8, MPV 9.7, Gran % 62.3, Lymphocytes % 23.8, Monocytes % 10.0 H, Eosinophils % 3.3, Basophils % 0.6, Absolute Granulocytes 4.0, Absolute Lymphocytes 1.5, Absolute Monocytes 0.6, Absolute Eosinophils 0.2, Absolute Basophils 0, PUBS MCHC 33.2 Vital Signs Date Time Temp Pulse Resp B/P Pulse O2 O2 Flow FiO2 Ox Delivery Rate 12/01 0802 98.4 74 20 124/78 98 Room Air 12/01 0123 98.6 77 20 101/59 96 Nasal 2.0L Cannula 12/01 0000 Nasal 2.0L Cannula 11/30 1631 97.5 70 20 108/60 95 Nasal Cannula Cellulitis and abscess 5th finger- drained. DC today on po bactrim, pt grew MSSA on culture. Sepsis with hypotension- resolved with iv fluids. Cocaine use- counselled pt on abstaining from drugs.
--- NOTE | 2016-12-06 23:20 | Discharge Summary ---
Visit Information Visit Dates Admission Date: 11/29/16 Discharge Date: 12/01/16 Hospital Course Course Attending Physician: ADI DUBOSE,ATA Mcgovern Primary Care Physician: MATTHEW ARCINIEGA MD Consulting Request: Consulting Specialty: Plastic Surgery Hospital Course: This is a 56F yo lady with a PMH of bipolar disorder, polysubstance abuse presented with a hemorrhagic bullous 5th digit of the right hand. The affected digit had surrounding erythema with significant pain. Pt reported 2 epiosdes of mechanical falls over the past few days without head injury, and sleeping in her car overnight in frigid temps. Pt denied trauma. Over the course of a few hours , lesion became darker and started to spread proximally. During presentation at the ED, Patient was noted to be drowsy,appearing sedated, and not able to sustain a converation without falling asleep. Labs remarkable for leukocytosis. Urine tox was remarkable for cocaine use. At the ED, plastic surgery was consulted. The Entire dorsal blister was sharply debrided with scalpel and scissors. Culture obtained. Turbid hemorrhagic fluid evacuated. Hemorrhagic tissue noted deep. Area was Cleaned with saline and dressed with SSD and xeroform. Patient was then started on clindamycin IV and admitted to general medicine floor. She was discharged on third day of hospital stay. The following issues were addressed during patient's hospitalization: #Sepsis Later at night on the same day of admission patient became septic with systolic blood pressure below 90. Patient received 2 -500 mls normal saline bolus and her blood pressure responded adequately. Patient was put on maintenance fluids and antibiotics continued. #Cellulitis of the fifth digit of right hand Patient received clindamycin IV, cultures obtained were remarkable for staph aureus. On discharge patient was given Bactrim double strength twice a day to complete a total 14 day antibiotic course. Occupational therapy was also consulted and based on plastic recommendation a resting splint was placed on the affected digit. Patient was also given instructions to follow-up with plastic surgery within 1 week after discharge. Allergies: Coded Allergies: Penicillins (RASH 11/29/16) Significant Procedures: Incission/drainage and Debridement of fifth digit. Disposition Summary Disposition Principal Diagnosis: Cellulitis Additional Diagnosis: Sepsis Discharge Disposition: home or self care Discharge Instructions General Discharge Information Code Status: Full Code Patient's Diet: regular Patient's Activity: as tolerated Follow-Up Instructions/Appts: Pt was to followw up with Plastic surgeon within 1 week Medications at Discharge Discharge Medications: Continue taking these medications: Trazodone HCl (Trazodone HCl) 50 MG TABLET 1 Tablet ORAL Every night Comments: DID NOT RECEIVE WHILE IN HOSPITAL Pregabalin (Lyrica) 150 MG CAPSULE 1 Capsule ORAL TWICE DAILY Comments: DID NOT RECEIVE WHILE IN HOSPITAL Albuterol Sulfate (Proair Hfa) 90 MCG HFA.AER.AD 2 Puff Inhale through mouth EVERY 4-6 HOURS NEEDED as needed for SHORTNESS OF BREATH Comments: DID NOT RECEIVE WHILE IN HOSPITAL Escitalopram Oxalate (Escitalopram Oxalate) 10 MG TABLET 1 Tablet ORAL DAILY Qty = 30 Comments: Last Taken: 12/01/16 Time: 11:00 AM Start taking the following new medications: Sulfamethoxazole/Trimethoprim (Bactrim Ds Tablet) 800 MG-160 MG TABLET 1 Tablet ORAL TWICE DAILY Qty = 14 No Refills Copies To: DEMIAN DUBOSE,MATTHEW Attending Review Statement Documenting Attending: ATA JOSHI MD Other Findings: Agree with the above discharge plan.
== END 2016-12-01 12:35 | disposition home health service (06) | DRG 855 ==
LOC: ENRESERVDT → ENRESERVTM → ERH 10:08 → ENPENDDIS 14:05 → 2NB 14:05 → ERHI 14:05 → 2NB 17:38
PROVIDERS: Physician Assistant Medical; Student in an Organized Health Care Education/Training Program; ADMIT Internal Medicine
PROC: 0H9FXZZ Drainage of Right Hand Skin, External Approach (ICD-10-PCS; principal; 2016-11-29)
PROC: 0HBFXZZ Excision of Right Hand Skin, External Approach (ICD-10-PCS; principal; 2016-11-29)
DX: A41.9 Sepsis, unspecified organism (principal); F14.929 Cocaine use, unspecified with intoxication, unspecified; L03.011 Cellulitis of right finger; B95.61 Methicillin susceptible Staphylococcus aureus infection as the cause of diseases classified elsewhere; F31.9 Bipolar disorder, unspecified
CPT/HCPCS: 2NSBP; 87184; 36415; 73140-RT; 80307; 82436; 87040; 87070; 87086; 87147; 90471; 90714; 93005; 93010; 96374; 96375; 97165-GO; G0480; J1650; J1885; J7040